=== PATIENT | male | born 1960 | race Caucasian/White ===

== ENCOUNTER 2016-11-19 23:18 | Emergency (ER) | payer MEDICAID, OTHER ==
[2016-11-19] MEDS ORDERED: Aspirin Low Dose CHEW TAB* 81 MG PO ONE (23:43)
[2016-11-19 23:50] LABS: Hematocrit 46 % (42-52); Hemoglobin 15.3 g/dl (14.0-18.0); Mean Corpuscular HGB Conc 33 g/dl (31-36); Mean Corpuscular Hemoglobin 29 pg (27-31); Mean Corpuscular Volume 89 fL (80-94); Mean Platelet Volume 8 um3 (7.4-10.4); Red Cell Distribution Width 13 % (10.5-15); White Blood Count 9.6 10^3/ul (3.5-10.8)
[2016-11-20 00:02] LABS: Albumin 4.4 g/dL (3.2-5.2); Calcium 9.2 mg/dL (8.6-10.3); EGFR African American 86.9 (>60); EGFR Non-African American 67.6 (>60); Globulin 3.1 g/dL (2-4); Magnesium 2.2 mg/dL (1.9-2.7); Potassium 3.6 mmol/L (3.5-5.0); Total Bilirubin 0.5 mg/dL (0.2-1.0); Total Protein 7.5 g/dL (6.4-8.9)
--- NOTE | 2016-11-20 00:22 | ED ---
Angel Harrell Karl, scribed for Darrell Muñoz MD on 11/19/16 at 2339 . HPI Chest Pain - HPI Summary HPI Summary: Pt is a 56 y/o male that presents to the ED c/o CP and SOB that began at 13:00 today. Pt reported that his CP began after "rigorous exercise" and rated it at a 2/10 currently. Pt stated he has not been feeling like himself and has an aching upper sternal chest pain described as a tightness that has been intermittent and is slightly aggravated by deep breaths. Pt also stated his BP was "high." - History of Current Complaint Chief Complaint: EDChestPainROMI Hx Obtained From: Patient Onset/Duration: Started Hours Ago, Atraumatic Timing: Intermittent Initial Severity: Mild Current Severity: Mild Pain Intensity: 2 - CP Pain Scale Used: 0-10 Numeric Chest Pain Location: Upper Sternal Chest Pain Radiates: No Character: Tightness Aggravating Factor(s): Deep Breaths Alleviating Factor(s): Nothing Associated Signs and Symptoms: Positive: Chest Pain, Shortness of Breath - Allergy/Home Medications Allergies/Adverse Reactions: Allergies Allergy/AdvReac Type Severity Reaction Status Date / Time No Known Allergies Allergy Verified 11/19/16 23:21 PMH/Surg Hx/FS Hx/Imm Hx Previously Healthy: Yes Infectious Disease History: No Infectious Disease History: Denies: Traveled Outside the [place] in Last 30 Days - Family History Known Family History: Positive: Cardiac Disease - Social History Alcohol Use: None Substance Use Type: Reports: None Smoking Status (MU): Never Smoked Tobacco Review of Systems Constitutional: Negative Eyes: Negative ENT: Negative Positive: Chest Pain Positive: Shortness Of Breath Gastrointestinal: Negative Genitourinary: Negative Musculoskeletal: Negative Skin: Negative Neurological: Negative Psychological: Normal All Other Systems Reviewed And Are Negative: Yes Physical Exam Triage Information Reviewed: Yes Vital Signs On Initial Exam: Initial Vitals Temp Pulse Resp BP Pulse Ox 97.3 F 56 18 174/92 100 11/19/16 23:21 11/19/16 23:21 11/19/16 23:21 11/19/16 23:21 11/19/16 23:21 Vital Signs Reviewed: Yes Appearance: Positive: Well-Appearing, No Pain Distress Skin: Positive: Warm Eyes: Positive: BAN ENT: Positive: Hearing grossly normal Neck: Positive: Supple Respiratory/Lung Sounds: Positive: Clear to Auscultation, Breath Sounds Present Cardiovascular: Positive: RRR. Negative: Murmur Abdomen Description: Positive: Nontender, No Organomegaly, Soft Bowel Sounds: Positive: Present Musculoskeletal: Positive: Strength/ROM Intact Neurological: Positive: Sensory/Motor Intact, Alert, Oriented to Person Place, Time, Normal Gait Psychiatric: Positive: Affect/Mood Appropriate Diagnostics - Vital Signs Vital Signs Temp Pulse Resp BP Pulse Ox 11/19/16 23:21 97.3 F 56 18 174/92 100 - Laboratory Lab Results: Lab Results 11/19/16 11/19/16 11/19/16 Range/Units 23:29 23:29 23:29 WBC 9.6 (3.5-10.8) 10^3/ul RBC 5.20 (4.0-5.4) 10^6/ul Hgb 15.3 (14.0-18.0) g/dl Hct 46 (42-52) % MCV 89 (80-94) fL MCH 29 (27-31) pg MCHC 33 (31-36) g/dl RDW 13 (10.5-15) % Plt Count 232 (150-450) 10^3/ul MPV 8 (7.4-10.4) um3 Neut % (Auto) 65.1 (38-83) % Lymph % (Auto) 25.0 (25-47) % [place] % (Auto) 7.8 (1-9) % Eos % (Auto) 1.6 (0-6) % Baso % (Auto) 0.5 (0-2) % Absolute Neuts (auto) 6.2 (1.5-7.7) 10^3/ul Absolute Lymphs (auto) 2.4 (1.0-4.8) 10^3/ul Absolute Monos (auto) 0.7 (0-0.8) 10^3/ul Absolute Eos (auto) 0.1 (0-0.6) 10^3/ul Absolute Basos (auto) 0.1 (0-0.2) 10^3/ul Absolute Nucleated RBC 0.01 10^3/ul Nucleated RBC % 0.1 Sodium 137 (133-145) mmol/L Potassium 3.6 (3.5-5.0) mmol/L Chloride 101 (101-111) mmol/L Carbon Dioxide 32 (22-32) mmol/L Anion Gap 4 (2-11) mmol/L BUN 19 (6-24) mg/dL Creatinine 1.12 (0.67-1.17) mg/dL Est GFR ( Amer) 86.9 (>60) Est GFR (Non-Af Amer) 67.6 (>60) BUN/Creatinine Ratio 17.0 (8-20) Glucose 88 (70-100) mg/dL Lactic Acid 0.6 (0.5-2.0) mmol/L Calcium 9.2 (8.6-10.3) mg/dL Magnesium 2.2 (1.9-2.7) mg/dL Total Bilirubin 0.50 (0.2-1.0) mg/dL AST 20 (13-39) U/L ALT 16 (7-52) U/L Alkaline Phosphatase 85 (34-104) U/L Troponin I 0.00 (<0.04) ng/mL Total Protein 7.5 (6.4-8.9) g/dL Albumin 4.4 (3.2-5.2) g/dL Globulin 3.1 (2-4) g/dL Albumin/Globulin Ratio 1.4 (1-3) Result Diagrams: 11/19/16 23:29 11/19/16 23:29 Lab Statement: Any lab studies that have been ordered have been reviewed, and results considered in the medical decision making process. - Radiology CXR Xray Interpretation: No Acute Changes Radiology Interpretation Completed By: ED Physician - IMPRESSION: No active cardiopulmonary pathology. - EKG 23:24 EKG Interpretation: Sinus bradycardia at 54 bpm, No acute ischemia Re-Evaluation - Re-Evaluation First Eval Re-Evaluation Time: 05:00 - remains pain free Change: Improved Chest Pain Course/Dx - Diagnoses Provider Diagnoses: Chest pain Discharge - Discharge Plan Condition: Improved Disposition: HOME Patient Education Materials: Chest Pain (ED) Referrals: Mazin Reese MD [Primary Care Provider] - Additional Instructions: Please follow up with your primary care provider. Return to the emergency department for changing or worsening symptoms. The documentation as recorded by the Angel staley Karl accurately reflects the service I personally performed and the decisions made by , Darrell Muñoz MD.
[2016-11-20 03:08] VITALS: BP 107/68
--- NOTE | 2016-11-20 06:57 | RAD ---
INDICATION: Chest pain COMPARISON: August 01, 2014 TECHNIQUE: PA and lateral dual-energy views were obtained. FINDINGS: Bones/Soft Tissues: There are no acute bony findings. Cardiomediastinal: The cardiomediastinal silhouette is normal. Lungs: There are no infiltrates. Pleura: There are no pleural effusions. Other: None IMPRESSION: NO ACTIVE DISEASE.
== END 2016-11-20 03:19 | disposition home or self-care (01) ==
LOC: ED 23:18
DX: R07.9 Chest pain, unspecified (principal); R06.02 Shortness of breath
CPT/HCPCS: 36415; 71020; 80053; 83605; 83735; 84484; 85025; 93005; 99283; A9270-GY

== ENCOUNTER 2019-05-06 13:27 | Emergency (ER) | payer OTHER ==
[2019-05-06 15:49] VITALS: BP 124/82
--- NOTE | 2019-05-06 16:23 | ED ---
Upper Extremity Pain - HPI Summary HPI Summary: Patient is a 58-year-old male who presents to the ED with left elbow injury. Patient states he was sitting on the deck in his chair when the chair toppled over and he landed directly onto the elbow. He does endorse abrasions to this elbow as well. He has been able to flex and extend above the elbow, however with discomfort. No ecchymosis or swelling noted, however there are abrasions to the lateral side. Denies any pain to the shoulder to the wrist. Denies any numbness or tingling. - History of Current Complaint Chief Complaint: EDExtremityUpper Stated Complaint: FALL 3 FEET ARM INJURY , Time Seen by Provider: 05/06/19 13:34 Hx Obtained From: Patient Mechanism Of Injury: Direct Blow Onset/Duration: Started Hours Ago Timing: Constant Severity Initially: Moderate Severity Currently: Moderate Pain Location: Elbow Character: Aching Alleviating Factor(s): Nothing Associated Signs & Symptoms: Negative: Swelling, Redness, Bruising Related History: Dominant Hand Right - Risk Factors Non-Orthopedic Risk Factor: Negative DVT Risk Factors: Negative Septic Arthritis Risk Factor: Negative Compartment Syndrome Risk Factors: Pain - Allergies/Home Medications Allergies/Adverse Reactions: Allergies Allergy/AdvReac Type Severity Reaction Status Date / Time No Known Allergies Allergy Verified 05/06/19 14:33 PMH/Surg Hx/FS Hx/Imm Hx Previously Healthy: Yes Endocrine/Hematology History: Denies: Hx Sickle Cell Disease Cardiovascular History: Denies: Hx Pacemaker/ICD History: Denies: Hx Dialysis Sensory History: Denies: Hx Eye Prosthesis, Hx Legally Blind, Hx Deafness Opthamlomology History: Denies: Hx Eye Prosthesis, Hx Legally Blind Neurological History: Denies: Hx Dementia Psychiatric History: Denies: Hx Autism - Immunization History Hx Pertussis Vaccination: No Immunizations Up to Date: Yes Infectious Disease History: No Infectious Disease History: Denies: Traveled Outside the [place] in Last 30 Days - Family History Known Family History: Positive: Cardiac Disease - Social History Occupation: Employed Full-time Lives: With Family Alcohol Use: Weekly Hx Substance Use: No Substance Use Type: Reports: None Hx Tobacco Use: No Smoking Status (MU): Never Smoked Tobacco Review of Systems Constitutional: Negative Negative: Fever, Chills, Fatigue, Skin Diaphoresis Negative: Palpitations, Chest Pain Negative: Shortness Of Breath, Cough Positive: no symptoms reported, see HPI Positive: Arthralgia Positive: Other - abrasions to the left lateral side of the arm Neurological: Negative All Other Systems Reviewed And Are Negative: Yes Physical Exam Triage Information Reviewed: Yes Vital Signs On Initial Exam: Initial Vitals Temp Pulse Resp BP Pulse Ox 98.1 F 57 18 149/95 98 05/06/19 13:30 05/06/19 13:30 05/06/19 13:30 05/06/19 13:30 05/06/19 13:30 Vital Signs Reviewed: Yes Appearance: Positive: Well-Appearing, Well-Nourished Skin: Positive: Warm, Skin Color Reflects Adequate Perfusion, Other - lateral elbow abrasions without puncture wounds or open areas, no signs of infection Head/Face: Positive: Normal Head/Face Inspection Eyes: Positive: EOMI, Conjunctiva Clear Neck: Positive: Supple, No Lymphadenopathy Respiratory/Lung Sounds: Positive: Clear to Auscultation, Breath Sounds Present Cardiovascular: Positive: RRR, Pulses are Symmetrical in both Upper and Lower Extremities Musculoskeletal: Positive: Pain @ - left elbow Neurological: Positive: Speech Normal Psychiatric: Positive: Normal, Affect/Mood Appropriate Diagnostics - Vital Signs Vital Signs Temp Pulse Resp BP Pulse Ox 05/06/19 15:10 97.4 F 58 14 124/82 98 05/06/19 13:30 98.1 F 57 18 149/95 98 - Laboratory Lab Statement: Any lab studies that have been ordered have been reviewed, and results considered in the medical decision making process. Course/Dx - Course Course Of Treatment: Patient is evaluated for left elbow pain and abrasions. Left elbow x-ray is obtained which shows no acute fracture. flexion and extension intact. No discomfort to the shoulder or to the wrist on palpation or flexion and extension. Patient states he feels otherwise well. Cleansed wound thoroughly with normal saline. Occlusive gauze and gauze wrapped. Enrike wrap applied. - Diagnoses Differential Diagnosis/HQI/PQRI: Positive: Fracture (Open), Fracture (Closed), Strain, Sprain, Other - abrasion/laceration Provider Diagnoses: Abrasion, Elbow contusion Discharge - Sign-Out/Discharge Documenting (check all that apply): Patient Departure Patient Received Moderate/Deep Sedation with Procedure: No - Discharge Plan Condition: Stable Disposition: HOME Patient Education Materials: Contusion in Adults (ED) Referrals: Mazin Reese MD [Primary Care Provider] - Additional Instructions: Keep wound cleaned and with antibiotic ointment applied Keep this bandage x 12-24 hours, then change bandage to bandaid or other gauze Gentle range of motion exercises x 2-3 days Ice may help with swelling - after 2 days if continues to be in pain, heat is best - Billing Disposition and Condition Condition: STABLE Disposition: Home
== END 2019-05-06 15:10 | disposition home or self-care (01) ==
LOC: ED 13:27
DX: S50.02XA Contusion of left elbow, initial encounter (principal); W07.XXXA Fall from chair, initial encounter
CPT/HCPCS: 99282